=== PATIENT | female | born 1960 | race Caucasian/White ===

== ENCOUNTER 2020-06-10 16:54 | Inpatient (IN) | payer OTHER ==
[~2020-06-10] VITALS: Ht 162.6 cm; Wt 69.3 kg
[2020-06-10] MEDS ORDERED: SODIUM CHLORIDE 0.9% 1,000 ML IV ONE (17:15)
[2020-06-10] MEDS ORDERED: cefTRIAXone 1GM/50ML D5W 50 ML IV ONE (18:15)
[2020-06-10] MEDS ORDERED: metroNIDAZOLE 500MG/100ML 100 ML IV ONE (18:15)
[2020-06-10 18:59] LABS: Basophils # (auto) 0 10 ^3/uL (0-0.2); Eosinophils # (auto) 0 10 ^3/uL (0-0.8); Lymphocytes # (auto) 1.3 10 ^3/uL (0.4-5.4); Lymphocytes % (auto) 9.4 % (10.0-50.0); Mean Corpuscular Hemoglobin 20.4 pg (28.0-32.0); Mean Corpuscular Hgb Conc. 28.3 g/dL (32.0-36.0); Monocytes # (auto) 0.9 10 ^3/uL (0-1.3); Monocytes % (auto) 6.6 % (0.0-12.0); Neutrophils # (auto) 11.3 10 ^3/uL (1.6-8.6); Nucleated Red Blood Cells % 1.4 %; Red Blood Cells 1.53 10^6/uL (4.0-5.20); White Blood Cell 13.5 10^3/uL (4.4-10.8)
[2020-06-10 19:10] LABS: Albumin 2.3 g/dL (3.4-5.0); Anion Gap 19 (5-15); Blood Urea Nitrogen 64 mg/dL (7-18); Calcium 8.2 mg/dL (8.5-10.1); Carbon Dioxide 14 mmol/L (21-32); Chloride 100 mmol/L (98-107); Potassium 3.5 mmol/L (3.5-5.1); Sodium 133 mmol/L (136-145)
[2020-06-10 19:12] LABS: Alanine Aminotransferase 287 U/L (13-56); Aspartate Aminotransferase 379 U/L (15-37); GFR African American 40 mL/min; GFR Non-African American 33 mL/min
[2020-06-10 19:16] LABS: Red Cell Distribution Width 24.4 % (11.8-14.3)
[2020-06-10 19:17] LABS: Alkaline Phosphatase 142 U/L (45-117); Bilirubin, Total 6.5 mg/dL (0.2-1.0); Total Protein 4.9 g/dL (6.4-8.2)
[2020-06-10 19:19] LABS: Hemoglobin 3.1 g/dL (12.2-16.2)
[2020-06-10 19:22] LABS: BUN/Creatinine Ratio 37.9
[2020-06-10 19:25] LABS: Glucose 446 mg/dL (74-106)
[2020-06-10] MEDS ORDERED: InsuLIN REG 1unit/0.01ml Soln (100units/ml) IV ONE (19:45)
[2020-06-10 21:00] VITALS: BP 87/45
[2020-06-10 21:15] VITALS: BP 85/27
[2020-06-10 22:00] VITALS: BP 101/44
[2020-06-10] MEDS ORDERED: DEXTROSE (50%) 50ML SYRG IV PRN (22:15)
[2020-06-10 23:08] VITALS: BP 103/46
[2020-06-10 23:20] VITALS: BP 92/55
[2020-06-10 23:35] VITALS: BP 100/61
[2020-06-10] MEDS: InsuLIN REG 1unit/0.01ml Soln (100units/ml) SC SCH (23:45)
[2020-06-10] MEDS: ACCU-CHEK COMFORT CURVE STRIP VI SCH (23:45)
[2020-06-11] VITALS (19 sets, daily range): BP systolic 90–131; BP diastolic 50–87
[2020-06-11 00:37] LABS: Lactic Acid w/Reflex 7.2 mmol/L (0.4-2.0)
[2020-06-11 00:53] LABS: Partial Thromboplastin Time 48.1 sec (23.0-31.2)
[2020-06-11 00:54] LABS: INR 3.52 (0.9-1.15)
[2020-06-11] MEDS ORDERED: ONDANSETRON HCL 4 MG/2 ML VIAL IV PRN (02:00)
[2020-06-11] MEDS ORDERED: ACETAMINOPHEN 325 MG TAB PO PRN (02:00)
[2020-06-11] MEDS ORDERED: NITROGLYCERIN 0.4 MG SL TAB SL PRN (02:00)
[2020-06-11] MEDS ORDERED: MORPHINE SULFATE INJECTION 2 MG/ML SYRG IV PRN (02:00)
[2020-06-11] MEDS ORDERED: MORPHINE SULFATE 4 MG/ML SYR/VIAL IV PRN (02:00)
[2020-06-11] MEDS ORDERED: DOCUSATE SOD 100 MG CAP PO PRN (02:00)
[2020-06-11] MEDS ORDERED: ALBUMIN 5% 250 ML IV ONE (02:00)
[2020-06-11] MEDS ORDERED: HYDROcodone-ACET 5/325MG TAB PO PRN (02:00)
[2020-06-11] MEDS ORDERED: VANCOMYCIN PER PHARMACY 0 MG IV SCH (02:15)
[2020-06-11] MEDS ORDERED: VANCOMYCIN 1GM/250ML 250 ML IV ONE (02:15)
[2020-06-11] MEDS: ACCU-CHEK COMFORT CURVE STRIP VI SCH ×5 (04:19→20:00)
[2020-06-11] MEDS: InsuLIN REG 1unit/0.01ml Soln (100units/ml) SC SCH ×5 (04:20→20:00)
[2020-06-11] MEDS ORDERED: DIPH25CA66 PO (04:38)
[2020-06-11] MEDS ORDERED: PNEUMOCOCCAL VACC POLYS 25 MCG/0.5 ML VIAL IM ONE (05:15)
[2020-06-11] MEDS ORDERED: INFLUENZA QUAD 2020-2021 0.5 ML SYRG IM ONE (05:15)
[2020-06-11] MEDS: metroNIDAZOLE 500MG/100ML 100 ML IV SCH ×2 (05:50→15:35)
[2020-06-11 05:53] LABS: Urine Bacteria FEW /hpf (None Seen); Urine Blood 1+ /uL (Negative); Urine Hyaline Cast FEW /lpf (0 - 2); Urine Specific Gravity 1.015 (1.001-1.035); Urine WBC 9 /hpf (0 - 5)
[2020-06-11 09:28] LABS: Eosinophils # (auto) 0 10 ^3/uL (0-0.8); Eosinophils % (auto) 0.1 % (0.0-7.0)
[2020-06-11 09:29] LABS: Basophils # (auto) 0 10 ^3/uL (0-0.2); Basophils % (auto) 0.2 % (0.0-2.0); Hematocrit 16.7 % (36.0-46.0); Lymphocytes # (auto) 1.2 10 ^3/uL (0.4-5.4); Lymphocytes % (auto) 10.9 % (10.0-50.0); Mean Corpuscular Hemoglobin 24.8 pg (28.0-32.0); Mean Corpuscular Hgb Conc. 31.3 g/dL (32.0-36.0); Monocytes # (auto) 0.7 10 ^3/uL (0-1.3); Monocytes % (auto) 6.2 % (0.0-12.0); Neutrophils # (auto) 9.3 10 ^3/uL (1.6-8.6); Neutrophils % (auto) 82.6 % (37.0-80.0); Nucleated Red Blood Cells % 0.1 %; Red Blood Cells 2.11 10^6/uL (4.0-5.20); White Blood Cell 11.3 10^3/uL (4.4-10.8)
[2020-06-11 09:39] LABS: Albumin 2.5 g/dL (3.4-5.0); Calcium 8.5 mg/dL (8.5-10.1); Potassium 3.2 mmol/L (3.5-5.1)
[2020-06-11 09:40] LABS: Red Cell Distribution Width 28.2 % (11.8-14.3)
[2020-06-11 09:42] LABS: BUN/Creatinine Ratio 49.3; Bilirubin, Total 4.3 mg/dL (0.2-1.0)
[2020-06-11 09:42] LABS: Hemoglobin 5.2 g/dL (12.2-16.2)
[2020-06-11] MEDS: ASCORBIC ACID 500 MG TAB PO SCH (10:00)
[2020-06-11] MEDS ORDERED: ZINC SULFATE 220mg CAP or TAB PO SCH (10:00)
[2020-06-11] MEDS ORDERED: FAMOTIDINE (10MG/ML) 2ML VL IV SCH (10:00)
[2020-06-11] MEDS: MULTIPLE VITAMIN TAB PO SCH (10:00)
[2020-06-11] MEDS ORDERED: FAMOTIDINE 20 MG TAB PO SCH (10:00)
[2020-06-11 10:17] LABS: Partial Thromboplastin Time 42.2 sec (23.0-31.2)
[2020-06-11 10:24] LABS: INR 2.6 (0.9-1.15)
[2020-06-11] MEDS ORDERED: diphenhdrAMINE HCL 50 MG/1 ML VL IV PRN (12:15)
[2020-06-11] MEDS ORDERED: levoFLOXacin 250MG 50 ML IV ONE (12:15)
[2020-06-11] MEDS ORDERED: POTASSIUM EFFERVESENT TAB 25 MEQ PO ONE (12:45)
[2020-06-11] MEDS ORDERED: PANTOPRAZOLE 40 MG/10 ML VIAL INJ IV ONE (15:00)
[2020-06-11] MEDS: Glucerna Carbsteady SHAKE Vanilla 8oz PO SCH (17:51)
[2020-06-11 18:00] LABS: Hematocrit 24.6 % (36.0-46.0)
[2020-06-11 18:27] LABS: Hemoglobin 6.9 g/dL (12.2-16.2)
[2020-06-12] VITALS (16 sets, daily range): BP systolic 109–122; BP diastolic 59–86
[2020-06-12] MEDS: ASCORBIC ACID 500 MG TAB PO SCH ×3 (00:35→21:33)
[2020-06-12] MEDS: PANTOPRAZOLE 40 MG/10 ML VIAL INJ IV SCH ×3 (00:35→21:33)
[2020-06-12] MEDS: InsuLIN REG 1unit/0.01ml Soln (100units/ml) SC SCH ×6 (00:41→20:03)
[2020-06-12] MEDS: metroNIDAZOLE 500MG/100ML 100 ML IV SCH ×4 (02:46→21:33)
[2020-06-12] MEDS: ACCU-CHEK COMFORT CURVE STRIP VI SCH ×7 (04:00→23:59)
[2020-06-12 04:45] LABS: Basophils # (auto) 0 10 ^3/uL (0-0.2); Eosinophils # (auto) 0 10 ^3/uL (0-0.8)
[2020-06-12 04:48] LABS: Basophils % (auto) 0.2 % (0.0-2.0); Hemoglobin 7.4 g/dL (12.2-16.2); Red Blood Cells 2.76 10^6/uL (4.0-5.20)
[2020-06-12 07:23] LABS: Basophils # (auto) 0 10 ^3/uL (0-0.2); Eosinophils # (auto) 0 10 ^3/uL (0-0.8); Hematocrit 20.9 % (36.0-46.0); Monocytes # (auto) 0.8 10 ^3/uL (0-1.3); Neutrophils # (auto) 9.9 10 ^3/uL (1.6-8.6); Nucleated Red Blood Cells % 0.1 %
[2020-06-12 07:27] LABS: Lymphocytes % (auto) 8.6 % (10.0-50.0); Mean Corpuscular Hemoglobin 26.6 pg (28.0-32.0); Mean Corpuscular Volume 80.6 fL (80.0-100.0); Monocytes % (auto) 6.7 % (0.0-12.0); Neutrophils % (auto) 84.7 % (37.0-80.0); Red Blood Cells 2.59 10^6/uL (4.0-5.20); White Blood Cell 11.7 10^3/uL (4.4-10.8)
[2020-06-12 07:48] LABS: Calcium 8.2 mg/dL (8.5-10.1); Potassium 3.2 mmol/L (3.5-5.1)
[2020-06-12 07:55] LABS: Albumin 2.3 g/dL (3.4-5.0); BUN/Creatinine Ratio 57.3; Red Cell Distribution Width 23.8 % (11.8-14.3); Total Protein 4.6 g/dL (6.4-8.2)
[2020-06-12 07:58] LABS: Hemoglobin 6.9 g/dL (12.2-16.2)
[2020-06-12] MEDS: Glucerna Carbsteady SHAKE Vanilla 8oz PO SCH ×3 (08:00→17:37)
[2020-06-12 08:10] LABS: Nucleated Red Blood Cells % 0.1 %
[2020-06-12 08:13] LABS: Hematocrit 22.6 % (36.0-46.0); Lymphocytes % (auto) 7.4 % (10.0-50.0); Mean Corpuscular Hemoglobin 26.8 pg (28.0-32.0); Mean Corpuscular Hgb Conc. 32.8 g/dL (32.0-36.0); Mean Corpuscular Volume 81.8 fL (80.0-100.0); Monocytes % (auto) 7.4 % (0.0-12.0); Neutrophils # (auto) 11.4 10 ^3/uL (1.6-8.6); White Blood Cell 13.4 10^3/uL (4.4-10.8)
[2020-06-12] MEDS ORDERED: POTASSIUM EFFERVESENT TAB 25 MEQ PO ONE (09:00)
[2020-06-12] MEDS: MULTIPLE VITAMIN TAB PO SCH (09:48)
[2020-06-12] MEDS ORDERED: levoFLOXacin 250MG 50 ML IV SCH (10:00)
[2020-06-12 20:28] LABS: Hemoglobin 8.2 g/dL (12.2-16.2)
[2020-06-12 20:29] LABS: Hematocrit 25.3 % (36.0-46.0)
[2020-06-13] MEDS: ACCU-CHEK COMFORT CURVE STRIP VI SCH ×4 (03:44→16:00)
[2020-06-13] MEDS: InsuLIN REG 1unit/0.01ml Soln (100units/ml) SC SCH ×5 (03:45→16:00)
[2020-06-13 05:00] VITALS: BP 121/67
[2020-06-13 05:16] LABS: Basophils # (auto) 0 10 ^3/uL (0-0.2); Basophils % (auto) 0.1 % (0.0-2.0); Eosinophils # (auto) 0 10 ^3/uL (0-0.8); Eosinophils % (auto) 0.2 % (0.0-7.0); Hematocrit 26.3 % (36.0-46.0); Red Blood Cells 3.15 10^6/uL (4.0-5.20)
[2020-06-13 05:20] LABS: Hemoglobin 8.5 g/dL (12.2-16.2); Lymphocytes # (auto) 1.1 10 ^3/uL (0.4-5.4); Lymphocytes % (auto) 9.4 % (10.0-50.0); Mean Corpuscular Hemoglobin 27.1 pg (28.0-32.0); Mean Corpuscular Hgb Conc. 32.4 g/dL (32.0-36.0); Mean Corpuscular Volume 83.4 fL (80.0-100.0); Monocytes # (auto) 1.1 10 ^3/uL (0-1.3); Monocytes % (auto) 9.2 % (0.0-12.0); Neutrophils # (auto) 9.7 10 ^3/uL (1.6-8.6); Neutrophils % (auto) 81.1 % (37.0-80.0); Nucleated Red Blood Cells % 0.1 %
[2020-06-13 05:27] LABS: Albumin 2.2 g/dL (3.4-5.0); Calcium 7.7 mg/dL (8.5-10.1); Potassium 3.2 mmol/L (3.5-5.1)
[2020-06-13 05:30] LABS: BUN/Creatinine Ratio 42.2
[2020-06-13] MEDS: metroNIDAZOLE 500MG/100ML 100 ML IV SCH ×2 (05:30→13:46)
[2020-06-13 05:32] LABS: Bilirubin, Total 4.7 mg/dL (0.2-1.0)
[2020-06-13 05:50] LABS: Red Cell Distribution Width 22.8 % (11.8-14.3)
[2020-06-13] MEDS: Glucerna Carbsteady SHAKE Vanilla 8oz PO SCH ×3 (08:27→18:23)
[2020-06-13] MEDS ORDERED: POTASSIUM EFFERVESENT TAB 25 MEQ PO ONE (08:45)
[2020-06-13 08:57] VITALS: BP 119/62
[2020-06-13] MEDS: ASCORBIC ACID 500 MG TAB PO SCH (09:28)
[2020-06-13] MEDS: MULTIPLE VITAMIN TAB PO SCH (09:28)
[2020-06-13] MEDS: PANTOPRAZOLE 40 MG/10 ML VIAL INJ IV SCH (09:28)
[2020-06-13] MEDS ORDERED: PHYTONADIONE(VitK) ORAL Susp 10mg/10ml(1mg/ml) PO SCH (10:00)
[2020-06-13] MEDS ORDERED: levoFLOXacin 500MG 100 ML IV SCH (10:00)
[2020-06-13 13:00] VITALS: BP 115/57
[2020-06-13] MEDS ORDERED: glipiZIDE 5 MG TAB PO ONE (13:00)
[2020-06-13 17:00] VITALS: BP 119/62
[2020-06-13] MEDS ORDERED: glipiZIDE 5 MG TAB PO SCH (18:00)
[2020-06-13 18:38] LABS: Hematocrit 27.1 % (36.0-46.0); Hemoglobin 8.9 g/dL (12.2-16.2)
[2020-06-14 13:41] LABS: Hepatitis A Ab IgM Negative; Hepatitis B Core IgM Negative; Hepatitis B Surface Antigen Negative (Negative)
[2020-06-14 13:42] LABS: Hepatitis C Antibody Negative (Negative)
== END 2020-06-13 20:15 | disposition short-term general hospital (02) | DRG 872 ==
LOC: EDBD 16:54 → ER 16:54 → TELE 06-11 02:03 → TELE-WESTW 06-11 03:30
PROVIDERS: ADMIT Nurse Practitioner Family; ATTEND Internal Medicine
DX: A41.9 Sepsis, unspecified organism (principal); D61.818 Other pancytopenia; D68.9 Coagulation defect, unspecified; E44.0 Moderate protein-calorie malnutrition; E87.2 Acidosis; N17.9 Acute kidney failure, unspecified; R18.8 Other ascites; Z20.822 Contact with and (suspected) exposure to COVID-19; D18.00 Hemangioma unspecified site; D50.9 Iron deficiency anemia, unspecified; E11.22 Type 2 diabetes mellitus with diabetic chronic kidney disease; E87.6 Hypokalemia; I20.9 Angina pectoris, unspecified; K52.9 Noninfective gastroenteritis and colitis, unspecified; K80.20 Calculus of gallbladder without cholecystitis without obstruction; N18.30 Chronic kidney disease, stage 3 unspecified; Z80.1 Family history of malignant neoplasm of trachea, bronchus and lung; Z80.3 Family history of malignant neoplasm of breast; Z80.8 Family history of malignant neoplasm of other organs or systems; Z86.711 Personal history of pulmonary embolism; Z88.1 Allergy status to other antibiotic agents; Z79.899 Other long term (current) drug therapy; Z79.891 Long term (current) use of opiate analgesic; Z79.01 Long term (current) use of anticoagulants; Z88.0 Allergy status to penicillin
CPT/HCPCS: 36415; 36430; 70450; 71045; 74176; 76700; 78226; 80053; 80074; 81001; 82270; 82378; 82962; 83036; 83605; 83615; 83880; 84443; 84484; 85014; 85018; 85025; 85610; 85730; 86850; 86900; 86901; 86920; 87040; 87081; 87086; 87426; 93005; 96365; 96367; 96368; 96375; C9113; G0378; J0696; J1815; J1956; J3490